=== PATIENT | male | born 1990 | race Hispanic/Latino ===

== ENCOUNTER 2025-04-09 13:38 | Emergency (ER) | payer BC ==
[~2025-04-09] VITALS: Ht 172.7 cm; Wt 131.5 kg
--- NOTE | 2025-04-09 14:15 | ERN ---
ED Note History of Present Illness Stated Complaint: BACK AND CHEST PAIN Chief Complaint: Abdominal Pain Time Seen by MD: 13:58 Dictation: PATIENT IS A 34-YEAR-OLD MALE COMING IN TODAY WITH BURNING SENSATION TO HIS EPIGASTRIUM AREA THAT RADIATES TO HIS BACK ONSET THIS MORNING. HE STATES HE HAD NAUSEA VOMITING X1 SAID IT WAS YELLOW. HE IS HAVING EPIGASTRIC TENDERNESS WITH PALPATION ON INITIAL EXAM, DENIES ANY HISTORY OF CAD HYPERTENSION DIABETES. STATES HE DID FEEL BETTER AFTER HE THREW UP. Allergies: Coded Allergies: No Known Allergies (Unverified Allergy, Unknown, 04/09/25) Past Medical History Past Medical History: Diabetes-Type II, High Cholesterol, Hypertension Surgical History: None RN Note Reviewed/Agreed w/PFSH: Yes Review of System Dictation CONSTITUTIONAL: Negative except for HPI HEAD/FACE: Negative except for HPI EENT: Negative except for HPI RESPIRATORY: Negative except for HPI GASTROINTESTINAL/ABDOMINAL: Negative except for HPI epigastric pain with nausea vomiting GENITOURINARY: Negative except for HPI MUSCULOSKELETAL: Negative except for HPI INTEGUMENTARY: Negative except for HPI NEUROLOGICAL/PSYCH: Negative except for HPI HEMATOLOGIC/LYMPHATIC: Negative except for HPI All Systems Negative, Except as noted above. 13 point review of systems assessed and all negative except for above. Initial Vital Sign VS Vital Signs Date Time Temp Pulse Resp B/P (MAP) Pulse Ox O2 Delivery O2 Flow Rate FiO2 04/09/25 13:40 97.9 80 16 153/92 99 Room Air 0 04/09/25 13:51 21 Physical Exam Dictation Vital Signs reviewed General Appearance: Alert, oriented x 3, mild acute distress, well developed, nourished. Obese Head and Face: non-traumatic. Eyes: PERRL, pink conjunctivas, eyelid no trauma, anterior chamber with arcus senilis. Ears: Pinnas intact and no signs of trauma or erythema ear canals clear and no discharge TM no erythema Nose: No discharge, no bleeding. Oropharynx: Mouth normal, tongue pink, pharynx clear,no erythema, tonsils no exudates, no abscesses noted, mucous membrane moist Neck: Supple, non-tender, no thyromegaly, no masses, no JVD, no bruits Breast:Deferred Chest:No tenderness, no crepitus, no paradoxical movement, no retractions Lungs:Clear, well-ventilated, symmetric, no rales, no wheezing, no rhonchi, no stridor, good breath sounds bilaterally Heart: Regular rate, regular rhythm, no murmur, no gallops Vascular: no peripheral edema, Abdomen: Soft, positive bowel sounds, nondistended, no guarding, Epigastric tenderness, no rebound, no masses no hepatomegaly, no splenomegaly, no Campos's sign, no hernias. Rectal: Deferred Genital: Deferred Neurological: Normal speech, motor function intact, sensory function intact Musculoskeletal: Neck nontender, full range of motion, back nontender, full range of motion, Extremities: nontender, full range of motion Skin: Color pink, dry, no turgor, no rash, no lacerations, no abrasions, no contusions. Lymphatic: Deferred Results (Laboratory/Radiology) Laboratory/Radiology Laboratory Tests Test 04/09/25 14:31 White Blood Count 7.9 K/uL (4.8-10.8) Red Blood Count 4.91 MIL/uL (4.50-6.20) Hemoglobin 13.8 g/dL (14.0-18.0) L Hematocrit 42.6 % (42-54) Mean Corpuscular Volume 86.8 fL (79-99) Mean Corpuscular Hemoglobin 28.1 pg (27.0-33.0) Mean Corpuscular Hemoglobin Concent 32.4 g/dL (32.0-36.0) Red Cell Distribution Width 13.6 % (11.0-15.5) Platelet Count 177 K/uL (130-400) Mean Platelet Volume 10.4 fL (7.5-10.5) Immature Granulocyte % (Auto) 0.4 % (0-1) Neutrophils (%) (Auto) 76.0 % (40.0-77.0) Lymphocytes (%) (Auto) 15.0 % (21.0-51.0) L Monocytes (%) (Auto) 7.2 % (3.0-13.0) Eosinophils (%) (Auto) 1.1 % (0.0-8.0) Basophils (%) (Auto) 0.3 % (0.0-5.0) Neutrophils # (Auto) 6.0 K/uL (1.8-7.7) Lymphocytes # (Auto) 1.2 K/uL (1.0-4.8) Monocytes # (Auto) 0.6 K/uL (0.1-1.0) Eosinophils # (Auto) 0.09 K/uL (0.00-0.70) Basophils # (Auto) 0.02 K/uL (0.00-0.20) Absolute Immature Granulocyte (auto 0.03 K/uL (0-1) Nucleated Red Blood Cells 0.0 % (0.0-0.19) Sodium Level 141 mmol/L (136-145) Potassium Level 3.9 mmol/L (3.5-5.1) Chloride Level 104 mmol/L (101-111) Carbon Dioxide Level 31 mmol/L (21-32) Blood Urea Nitrogen 19 mg/dL (7-18) H Creatinine 0.7 mg/dL (0.5-1.3) Glomerular Filtration Rate Calc 124 mL/min (>90) Random Glucose 124 mg/dL (70-105) H Total Calcium 9.0 mg/dL (8.5-10.1) Troponin I High Sensitivity < 4 ng/L (4-75) L Lipase 33 U/L (16-77) Labs Reviewed?: Yes EKG: (+) NSR EKG Comment: EKG normal sinus rhythm/heart rate 80/axis normal/no ectopy ED Course ED Course Orders Procedure Category Date Status Time 12 Lead Ekg Tracing- EKG 04/09/25 Logged Technical 13:46 Cbc With Differential LAB 04/09/25 Complete 14:13 Troponin I High LAB 04/09/25 Complete Sensitivity 14:13 Lidocaine Hcl 2% PHA 04/09/25 Complete Viscous (Lidocaine Hcl 14:30 Mag/Alum/Simeth 30ml PHA 04/09/25 Complete (Maalox Plus 30ml) 14:30 Dicyclomine Hcl PHA 04/09/25 Complete (Bentyl 10mg/5ml 14:30 Famotidine 20mg Vial PHA 04/09/25 Complete (Pepcid 20mg Vial) 14:30 Lipase LAB 04/09/25 Complete 14:13 Basic Metabolic Panel LAB 04/09/25 Complete 14:13 Current Medications Medications (Trade) Dose Ordered Sig/Sharona Route PRN Reason Start Time Stop Time Status Last Admin Dose Admin Al Hydroxide/Mg Hydroxide (MAALox PLUS 30ML) 30 ml ONCE ONCE PO 04/09/25 14:30 04/09/25 14:31 DC 04/09/25 14:25 Dicyclomine HCl (Bentyl 10mg/5ml Syrup) 10 mg ONCE ONCE PO 04/09/25 14:30 04/09/25 14:31 DC 04/09/25 14:26 Famotidine (Pepcid 20mg Vial) 20 mg ONCE ONCE IV 04/09/25 14:30 04/09/25 14:31 DC 04/09/25 14:25 Lidocaine HCl (Lidocaine HCl 2% Viscous) 10 ml ONCE ONCE PO 04/09/25 14:30 04/09/25 14:31 DC 04/09/25 14:26 Vital Signs Date Time Temp Pulse Resp B/P (MAP) Pulse Ox O2 Delivery O2 Flow Rate FiO2 04/09/25 13:51 97.9 80 16 153/92 99 Room Air* 0 21 04/09/25 13:40 97.9 80 16 153/92 99 Room Air 0 1620/patient in no pain at this time. Given GI cocktail we will be sent home on Carafate and omeprazole information on a bland diet with water for fluids only. We will be told to see his primary care doctor. HEART Score Response (Comments) Value History: Low suspicion (0) 0 EKG: Normal 0 Age: < 45yrs (0) 0 Risk Factors: 1-2 risk factors (+1) 1 Initial Troponin: Normal limit (0) 0 Total 1 Medical Decision Making MDM Medical discharge making based on basic labs for epigastric pain. Labs unremarkable except for mildly elevated hyperglycemia Pain resolved with GI cocktail. Discharged home with Carafate and omeprazole Given information on bland diet with water for fluids only. Follow up with his primary care doctor. DX & DISP Disposition: Discharge Departure Impression: Primary Impression: Acute gastritis Additional Impression: Hyperglycemia Condition: Stable Scripts Omeprazole (Omeprazole) 40 Mg Capsule. 1 CAP PO DAILY for 30 Days, #30 CAP 0 Refills Prov: DEBBIE GOINS CONFERENCE INTERPRETER 04/09/25 Sucralfate (Carafate) 1 Gram Tablet 1 GM PO ACHS for 10 Days, #40 TAB Prov: DEBBIE GOINS CONFERENCE INTERPRETER 04/09/25 Additional Instructions: Follow-up with primary care provider in 1 to 2 days. Take medications as directed here in the emergency room. Okay to continue home medications unless otherwise discussed during your visit in the emergency room today. Return to your nearest emergency room if symptoms worsen or if there is no improvement. Call 911 if you need immediate assistance. Take Tylenol or Motrin [id number] as needed and if no contraindications are present. Increase oral hydration. A wound culture or urine culture was ordered here in the emergency room department please follow-up with primary care provider and advise them to get repeat ports from our facility. If you had any Richardson wrap/splints that were applied here, please do not remove them until you see your primary care or specialty. Follow a bland diet with water for fluids only. No spicy foods, no ice tea, no alcohol, no Coke or caffeine products. No bubbly drinks and no citrus fruit juice until cleared by your doctor. Take Carafate and omeprazole as directed. Time of Disposition: 16:22 I have reviewed the case, and I agree with, Diagnosis and Plan DEBBIE GOINS NP Apr 09, 2025 14:15
[2025-04-09] MEDS: FAMOTIDINE 20MG VIAL IV ONE (14:25)
[2025-04-09] MEDS: MAG/ALUM/SIMETH 30 ML UDCUP PO ONE (14:25)
[2025-04-09] MEDS: DICYCLOMINE HCL 10 MG/5 ML ML PO ONE (14:26)
[2025-04-09] MEDS: LIDOCAINE HCL 2% VISCOUS 15 ML UDCUP PO ONE (14:26)
[2025-04-09 15:14] LABS: IMMATURE GRANULOCYTE ABSOLUTE 0.03 K/uL (0-1); NUCLEATED RED BLOOD CELLS 0.0 % (0.0-0.19); PLATELET COUNT (AUTO) 177 K/uL (130-400); RED BLOOD CELL COUNT(AUTO) 4.91 MIL/uL (4.50-6.20); RED CELL DISTRIBUTION WIDTH 13.6 % (11.0-15.5); WHITE BLOOD COUNT (AUTO) 7.9 K/uL (4.8-10.8)
[2025-04-09 15:22] LABS: CREATININE 0.7 mg/dL (0.5-1.3); GLOMERULAR FILTR. RATE CALC 124.0 mL/min (>90); GLUCOSE,RANDOM 124.0 mg/dL (70-105); SODIUM SERUM 141.0 mmol/L (136-145); UREA NITROGEN, BLOOD 19.0 mg/dL (7-18)
[2025-04-09] MEDS ORDERED: OMEP40CA21 PO (16:23)
[2025-04-09] MEDS ORDERED: SUCR1TAB28 PO (16:23)
[2025-04-09 16:40] VITALS: BP 142/88; PULSE 84; RESP 16; TEMP 97.9; O2SAT 99
== END 2025-04-09 16:41 | disposition home or self-care (01) ==
LOC: EDH 13:38
DX: K29.00 Acute gastritis without bleeding (principal); E11.65 Type 2 diabetes mellitus with hyperglycemia; E78.00 Pure hypercholesterolemia, unspecified; I10 Essential (primary) hypertension
CPT/HCPCS: 99284; 96374; 84484; 80048; 83690; 85025; 36415; J3490